=== PATIENT | male | born 1995 | race Caucasian/White ===

== ENCOUNTER 2017-01-08 15:45 | Emergency (ER) | payer OTHER ==
[~2017-01-08] VITALS: Ht 167.6 cm; Wt 95.3 kg
[2017-01-08 15:50] VITALS: BP 128/79
--- NOTE | 2017-01-08 16:00 | PHYS DOC ---
Past Medical History Past Medical History: No Pertinent History Past Surgical History: Tonsillectomy Alcohol Use: None Drug Use: None Adult General Chief Complaint Chief Complaint: ANKLE PROBLEM HPI HPI Patient is a 21 year old female presents to the emergency department with complaints of right ankle pain. He states last night he stepped in a hole and describes an inversion type injury to the right ankle. He states he has been weightbearing on the extremity since incident. He is using [id number] Advil without relief of symptoms. Review of Systems Review of Systems Constitutional: Denies fever or chills [] Eyes: Denies change in visual acuity, redness, or eye pain [] HENT: Denies nasal congestion or sore throat [] Respiratory: Denies cough or shortness of breath [] Cardiovascular: No additional information not addressed in HPI [] GI: Denies abdominal pain, nausea, vomiting, bloody stools or diarrhea [] : Denies dysuria or hematuria [] Musculoskeletal: Right ankle pain Integument: Denies rash or skin lesions [] Neurologic: Denies headache, focal weakness or sensory changes [] Endocrine: Denies polyuria or polydipsia [] Current Medications Current Medications Current Medications Medications (Trade) Dose Ordered Sig/Waylon Start Time Stop Time Status Last Admin Dose Admin Ibuprofen (Motrin) 600 mg 1X ONCE 01/08/17 16:30 01/08/17 16:31 UNV Allergies Allergies Allergies Coded Allergies Type Severity Reaction Last Updated Verified No Known Drug Allergies 01/08/17 No Physical Exam Physical Exam Constitutional: Well developed, well nourished, no acute distress, non-toxic appearance. [] Back: No tenderness, no CVA tenderness. [] Extremities: Right lower extremity exam: Right knee exam unremarkable, right foot exam unremarkable. Mild swelling to the lateral malleolus. He is diffusely tender to palpate over the medial and lateral malleolus. Achilles tendon is intact. Neurovascular intact distally. Current Patient Data Vital Signs Vital Signs Date Time Temp Pulse Resp B/P (MAP) Pulse Ox O2 Delivery O2 Flow Rate FiO2 01/08/17 15:50 98.0 72 18 98 Room Air 98.0 EKG EKG [] Radiology/Procedures Radiology/Procedures Ankle x-ray reviewed by this provider, no acute changes. [facility] [address] [place], [place] [id number] IMAGING REPORT Signed PATIENT: HARRY CARTER ACCOUNT: [id number] : 1995 LOCATION: ER AGE: 21 SEX: M EXAM STATUS: REG ER ORD. PHYSICIAN: CLARICE DOWNS APRN REASON: pain PROCEDURE: ANKLE RIGHT 3V Right ankle, 3 views, 01/08/2017: History: Ankle injury after fall There is moderate soft tissue swelling over the lateral malleolus. A calcific density at the tip of the lateral malleolus is well defined and probably represents an accessory ossicle. No definite acute fracture or dislocation is identified. IMPRESSION: No acute bony abnormality is detected. DICTATED and SIGNED BY: LALA ECHOLS MD DATE: 01/08/17 161 CC: GIULIA ENCARNACION MD; CLARICE DOWNS APRN ~ Air cast applied by nursing staff. Patient tolerated well. Neurovascular intact distally. [] Course & Med Decision Making Course & Med Decision Making Pertinent Labs and Imaging studies reviewed. (See chart for details) [] Dragon Disclaimer Dragon Disclaimer This electronic medical record was generated, in whole or in part, using a voice recognition dictation system. Departure Departure Impression: Primary Impression: Ankle sprain Disposition: 01 HOME, SELF-CARE Condition: STABLE Referrals: [facility] Patient Instructions: Ankle Sprain, Crutch Use, RICE - Routine Care for Injuries Scripts Ibuprofen (IBUPROFEN) 800 Mg Tablet 800 MG PO PRN Q6HRS Y for INFLAMMATION, #20 TAB Prov: CLARICE DOWNS APRN 01/08/17 Problem Qualifiers Primary Impression: Ankle sprain Encounter type: initial encounter Involved ligament of ankle: other ligament Laterality: right Qualified Codes: S93.491A - Sprain of other ligament of right ankle, initial encounter CLARICE DOWNS APRN Jan 08, 2017 16:00
[2017-01-08] MEDS ORDERED: IBUP-1060 PO (16:12)
--- NOTE | 2017-01-08 16:16 | RAD ---
Right ankle, 3 views, 01/08/2017: History: Ankle injury after fall There is moderate soft tissue swelling over the lateral malleolus. A calcific density at the tip of the lateral malleolus is well defined and probably represents an accessory ossicle. No definite acute fracture or dislocation is identified. IMPRESSION: No acute bony abnormality is detected.
[2017-01-08] MEDS ORDERED: IBUPROFEN 600 MG TABLET. PO ONE (16:30)
== END 2017-01-08 16:32 | disposition home or self-care (01) ==
LOC: ER 15:45
DX: S93.401A Sprain of unspecified ligament of right ankle, initial encounter (principal); X58.XXXA Exposure to other specified factors, initial encounter; Y93.89 Activity, other specified; Y92.89 Other specified places as the place of occurrence of the external cause; Y99.8 Other external cause status
CPT/HCPCS: 73610; 99284; L4350